=== PATIENT | male | born 2005 | race Caucasian/White ===

== ENCOUNTER 2023-10-21 14:27 | Emergency (ER) | payer OTHER ==
[2023-10-21 14:46] VITALS: BP 112/60; PULSE 75; RESP 16; TEMP 98; BMI 22.5
== END 2023-10-21 17:23 | disposition home or self-care (01) ==
LOC: JERFT 14:27
DX: H92.02 Otalgia, left ear (principal); R09.81 Nasal congestion; H66.92 Otitis media, unspecified, left ear; U07.1 COVID-19
CPT/HCPCS: 0241U-QW; 99283-25